=== PATIENT | female | born 1970 | race Caucasian/White ===

== ENCOUNTER 2022-01-15 08:41 | Day surgery (SDC) | payer BC, MEDICARE ==
[2022-01-15] MEDS ORDERED: Lactated Ringers 1,000 ML IV SCH (08:45)
[2022-01-15] MEDS ORDERED: Propofol 200 MG/20 ML SDV ONE (09:20)
[2022-01-15] MEDS ORDERED: Midazolam 1 MG/ML 2 ML SDV ONE (09:20)
[2022-01-15] MEDS ORDERED: EPINEPHrine 1:10,000 1 MG/10 ML Syringe ONE (09:54)
[2022-01-15] MEDS: Sodium Chloride 0.9% 10 ML Syringe FLUSH PRN ×2 (10:40→12:05)
[2022-01-15 13:18] VITALS: BP 119/76; PULSE 80
== END 2022-01-15 12:10 | disposition home or self-care (01) ==
LOC: KA.SDS 08:41
PROVIDERS: ATTEND Family Medicine
DX: R19.5 Other fecal abnormalities (principal); F41.9 Anxiety disorder, unspecified; G47.00 Insomnia, unspecified; M19.90 Unspecified osteoarthritis, unspecified site; E03.9 Hypothyroidism, unspecified; E78.5 Hyperlipidemia, unspecified; E66.9 Obesity, unspecified; I49.8 Other specified cardiac arrhythmias; R73.03 Prediabetes; G89.4 Chronic pain syndrome; Z86.010 Personal history of colon polyps; Z91.040 Latex allergy status; Z91.014 Allergy to mammalian meats; Z91.018 Allergy to other foods; Z91.041 Radiographic dye allergy status; Z88.8 Allergy status to other drugs, medicaments and biological substances; Z88.1 Allergy status to other antibiotic agents; Z88.2 Allergy status to sulfonamides; Z68.34 Body mass index [BMI] 34.0-34.9, adult; Z79.899 Other long term (current) drug therapy; Z79.811 Long term (current) use of aromatase inhibitors; Z79.890 Hormone replacement therapy; Z79.51 Long term (current) use of inhaled steroids; Z91.030 Bee allergy status; Z68.35 Body mass index [BMI] 35.0-35.9, adult; Z85.038 Personal history of other malignant neoplasm of large intestine
CPT/HCPCS: 00812; 81025; J2250; J2704; J3490; J7120

== ENCOUNTER 2022-01-27 10:57 | Emergency (ER) | payer MEDICARE ==
[2022-01-27 11:20] VITALS: PULSE 81
[2022-01-27] MEDS ORDERED: Sodium Chloride 0.9% 20 ML SDV FLUSH SCH (11:43)
[2022-01-27] MEDS: Sodium Chloride 0.9% 1,000 ML IV ONE (11:43)
[2022-01-27] MEDS: Ondansetron 4 MG/2 ML SDV IVPUSH ONE (11:45)
[2022-01-27] MEDS: diphenhydrAMINE 50 MG/ML SDV IVPUSH ONE (11:47)
[2022-01-27] MEDS: Ketorolac 30 MG/ML SDV IVPUSH ONE (11:50)
[2022-01-27 12:05] VITALS: BP 133/91
== END 2022-01-27 12:55 | disposition home or self-care (01) ==
LOC: KA.ED 10:57
DX: G89.4 Chronic pain syndrome (principal); M54.2 Cervicalgia; R51.9 Headache, unspecified; E78.00 Pure hypercholesterolemia, unspecified; K21.9 Gastro-esophageal reflux disease without esophagitis; E03.9 Hypothyroidism, unspecified; E66.9 Obesity, unspecified; Z91.030 Bee allergy status; Z91.040 Latex allergy status; Z91.041 Radiographic dye allergy status; Z91.048 Other nonmedicinal substance allergy status; Z91.018 Allergy to other foods; Z79.899 Other long term (current) drug therapy; Z68.34 Body mass index [BMI] 34.0-34.9, adult
CPT/HCPCS: 96361; 96374; 96375; 99283-25; 99284; J1200; J1885; J2405; J3360; J7030